=== PATIENT | male | born 2000 | race Caucasian/White ===

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

== ENCOUNTER → 2022-03-14 11:09 | Outpatient (BNVA) | payer OTHER, SELFPAY | PROVIDERS: Visit Provider Nurse Practitioner Psychiatric/Mental Health | DX: Z79.899 Other long term (current) drug therapy (principal) | CPT/HCPCS: 80053 ==

== ENCOUNTER → 2022-08-11 08:56 | Outpatient (BNVA) | payer OTHER, MEDICAID, SELFPAY | PROVIDERS: PCP Family Medicine; Visit Provider Clinical Nurse Specialist Adult Health | DX: F33.0 Major depressive disorder, recurrent, mild (principal) | CPT/HCPCS: 80053 ==

== ENCOUNTER 2022-11-23 01:45 | Emergency (ER) | payer OTHER, MEDICAID, SELFPAY ==
[2022-11-23 01:46] VITALS: BP 131/85; PULSE 84; RESP 16; TEMP 37.2; O2SAT 96; BMI 29.8
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
--- NOTE | 2022-11-23 01:55 | PC.NURSE ---
Pt's clothing, watch, phone, necklace, and wallet/pocket belongings all placed in patient bag with patient label. Pt was informed where belongings went and watched nurse secure them in belonging bag.
[2022-11-23 02:31] LABS: Basophils % 0.2 %; Eosinophils # 0.1 10^3/uL (0.0-0.8); Eosinophils % 0.7 %; Hematocrit 45.9 % (42.0-52.0); Hemoglobin 15.9 g/dL (11.7-16.6); Lymphocytes # 2.5 10^3/uL (1.5-6.5); Lymphocytes % 23.3 %; Mean Corpuscular HGB Conc 34.6 g/dL (30.0-36.0); Mean Corpuscular Hemoglobin 29.3 pg (28.0-34.0); Mean Corpuscular Volume 84.5 fl (80-94); Mean Platelet Volume 10.6 fL (7.4-10.4); Monocytes # 0.6 10^3/uL (0.2-0.9); Monocytes % 5.3 %; Neutrophils # 7.61 10^3/uL (1.8-8.0); Neutrophils % 70.1 %; Nucleated Red Blood Cells % 0 %; Platelet Count 354 10^3/cmm (130-400); Red Blood Count 5.43 10^6/uL (4.1-5.3); Red Cell Distribution Width 11.9 % (12.1-15.1); White Blood Count 10.9 10^3/uL (4.5-13.0)
[2022-11-23 02:50] LABS: Alanine Aminotransferase 29 U/L (0-41); Albumin Level 4.4 g/dL (3.5-5.2); Alkaline Phosphatase 62 U/L (40-130); Anion Gap 15.9 (5-19); Aspartate Amino Transferase 14 U/L (0-40); Blood Urea Nitrogen 10 mg/dL (6-20); Calcium 9.7 mg/dL (8.5-10.5); Carbon Dioxide 25 mmol/L (22-29); Chloride 102 mmol/L (98-107); Globulin 2.8 g/dL (1.3-4.6); Glomerular Filtration Rate 107.6 mL/min (90-130); Glucose 86 mg/dL (65-115); Osmolality Calculated 286 mOsm/kg (285-295); Potassium 3.9 mmol/L (3.5-5.1); Sodium 139 mmol/L (136-145); Total Bilirubin 0.3 mg/dL (0.15-1.2); Total Protein 7.2 g/dL (6.6-8.7)
[2022-11-23 02:52] LABS: Acetaminophen < 5.0 ug/mL (10-30); Alcohol Level < 10 mg/dL (0-10); Salicylate < 0.3 mg/dL (3-10)
--- NOTE | 2022-11-23 04:17 | ECG_ITS ---
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 Measurements Intervals [place] Rate: 62 P: 34 VA: 199 QRS: 63 QRSD: 97 T: 46 QT: 380 QTc: 387 Interpretive Statements SINUS RHYTHM No previous ECG available for comparison Electronically Signed On 11-23-2022 16:51:15 CDT by Maria Palencia M.D. [email or web address]
[2022-11-23 04:41] LABS: SARS Covid-2 Antigen negative (Negative)
[2022-11-23 05:13] VITALS: BP 145/83; PULSE 78; RESP 18; O2SAT 95
[2022-11-23 05:15] VITALS: BP 145/83; PULSE 85; RESP 18; O2SAT 96
[2022-11-23 05:17] LABS: Amphetamines Screen Urine Negative (Negative); Barbiturates Screen Urine Negative (Negative); Benzodiazepines Screen Urine Negative (Negative); Cocaine Screen Urine Negative (Negative); Opiate Screen Urine Negative (Negative); PCP Screen Urine Negative (Negative); THC Screen Urine Negative (Negative)
== END 2022-11-23 05:20 | disposition home or self-care (01) ==
PROVIDERS: Emergency Provider Emergency Medicine; PCP Clinical Nurse Specialist Adult Health
DX: R45.851 Suicidal ideations (principal); F32.A Depression, unspecified; F17.290 Nicotine dependence, other tobacco product, uncomplicated; Z79.899 Other long term (current) drug therapy
CPT/HCPCS: 36415; 80053; 80306; 80307; 85025; 87426; 93005; 99284